=== PATIENT | female | born 1970 | race Two or more races ===

== ENCOUNTER 2018-12-12 00:10 | Emergency (ER) | payer MEDICAID ==
[~2018-12-12] VITALS: Ht 154.9 cm; Wt 79.4 kg
[2018-12-12 00:26] VITALS: BP 114/69
== END 2018-12-12 03:34 | disposition left against medical advice (07) ==
LOC: ER 00:15
DX: G43.909 Migraine, unspecified, not intractable, without status migrainosus (principal); R11.2 Nausea with vomiting, unspecified; Z53.21 Procedure and treatment not carried out due to patient leaving prior to being seen by health care provider